=== PATIENT | male | born 1970 | race Caucasian/White ===

== ENCOUNTER 2016-10-17 13:01 | Outpatient (CLI) | payer BC ==
[2016-02-15 20:43] VITALS: O2SAT 99
== END 2016-10-17 13:02 | disposition home or self-care (01) ==
LOC: CONVCARE 13:01
PROVIDERS: ATTEND Orthopaedic Surgery
DX: D48.1 Neoplasm of uncertain behavior of connective and other soft tissue (principal)
CPT/HCPCS: 73140

== ENCOUNTER 2017-01-23 07:42 | Day surgery (SDC) | payer BC ==
[2017-01-23] MEDS ORDERED: LIDOCAINE HCL 1% MPF SOL ONE (07:43)
[2017-01-23] MEDS ORDERED: PROPOFOL 500 MG/50 ML EMU IV ONE (07:43)
[2017-01-23] MEDS ORDERED: FENTANYL 100MCG/2ML SOL ONE (07:44)
[2017-01-23] MEDS ORDERED: MIDAZOLAM 2 MG/2 ML SOL ONE (07:44)
[2017-01-23] MEDS ORDERED: BUPIVACAINE HCL 0.5% MPF 10 ML SOL ONE ×2 (08:10→09:12)
[2017-01-23] MEDS ORDERED: LIDOCAINE HCL 2% MPF SOL ONE (08:10)
[2017-01-23] MEDS ORDERED: CEFAZOLIN SODIUM 1 GM PDS ONE (10:01)
[2017-01-23] MEDS ORDERED: ONDANSETRON HCL 4 MG/2 ML SOL ONE (10:01)
[2017-01-23] MEDS ORDERED: HYDROMORPHONE 1 MG/ML SYRINGE ONE (10:05)
[2017-01-23] MEDS ORDERED: DEXAMETHASONE 20 MG/5 ML (4 MG/ML SOL) ONE (12:38)
[2017-01-23] MEDS ORDERED: METOCLOPRAMIDE HYDROCHLORIDE 5 MG/ML SOL ONE (12:38)
[2017-01-23 12:55] VITALS: TEMP 96.6
[2017-01-23 12:58] VITALS: BP 124/79; PULSE 74; RESP 18; O2SAT 96
== END 2017-01-23 13:49 | disposition home or self-care (01) ==
LOC: SURG 07:42
PROVIDERS: ATTEND Orthopaedic Surgery
DX: D16.11 Benign neoplasm of short bones of right upper limb (principal); L72.0 Epidermal cyst
CPT/HCPCS: 11401; 26160; 99001; J0330; J0690; J1100; J1170; J2001; J2250; J2405; J2704; J2765; J3010; A6402

== ENCOUNTER 2018-04-01 10:12 | Day surgery (SDC) | payer BC ==
[2018-04-01] MEDS ORDERED: DIAZEPAM 5 MG TAB ONE (10:30)
[2018-04-01] MEDS ORDERED: DEXAMETHASONE SOD PHOS PF 10 MG/ML SOL IJ ONE (11:02)
[2018-04-01] MEDS ORDERED: BUPIVACAINE HCL 0.25% MPF 30 ML SOL INFIL ONE (11:02)
[2018-04-01 11:22] VITALS: O2SAT 97
[2018-04-01 11:38] VITALS: BP 149/98; PULSE 68; RESP 14; TEMP 97.9
== END 2018-04-01 11:50 | disposition home or self-care (01) ==
LOC: SURG 10:12
PROVIDERS: ATTEND Nurse Anesthetist, Certified Registered
DX: M51.17 Intervertebral disc disorders with radiculopathy, lumbosacral region (principal)
CPT/HCPCS: A9270-GY; J1100